=== PATIENT | male | born 1985 | race Caucasian/White ===

== ENCOUNTER 2018-04-10 22:28 | Emergency (ER) | payer MEDICAID ==
[~2018-04-10] VITALS: Ht 177.8 cm; Wt 84.0 kg
[2018-04-10 22:30] VITALS: BP 146/66
[2018-04-10] MEDS ORDERED: DIPH,PERTUSS(ACELL),TET VAC/PF 0.5 ML IM-VACC ONE (23:00)
== END 2018-04-11 00:26 | disposition home or self-care (01) ==
LOC: ED 23:51
DX: S01.81XA Laceration without foreign body of other part of head, initial encounter (principal); M25.532 Pain in left wrist; M79.632 Pain in left forearm; Z72.9 Problem related to lifestyle, unspecified; F10.129 Alcohol abuse with intoxication, unspecified; F17.200 Nicotine dependence, unspecified, uncomplicated; X58.XXXA Exposure to other specified factors, initial encounter; Y93.89 Activity, other specified; Y92.89 Other specified places as the place of occurrence of the external cause; Y99.8 Other external cause status
CPT/HCPCS: 71045; 99284

== ENCOUNTER 2019-11-15 10:20 | Emergency (ER) | payer OTHER, MEDICARE, MEDICAID ==
[~2019-11-15] VITALS: Ht 177.8 cm; Wt 77.3 kg
[2019-11-15] MEDS ORDERED: LIDOCAINE 1%, 10ML INFIL ONE (10:30)
[2019-11-15] MEDS ORDERED: DIPH,PERTUSS(ACELL),TET VAC/PF 0.5 ML IM-VACC ONE ×2 (10:30→10:43)
[2019-11-15] MEDS ORDERED: LIDOCAINE 1%-EPI 1:100K, 20ML ONE (10:43)
[2019-11-15 11:22] LABS: BASOPHILS # (AUTO) 0.02 x10^3/uL (0-0.1); BASOPHILS % (AUTO) 0 % (0-1); EOSINOPHILS # (AUTO) 0.03 x10^3/uL (0-0.4); EOSINOPHILS % (AUTO) 0 % (1-7); LYMPHOCYTES # (AUTO) 1.86 x10^3/uL (1-3.4); LYMPHOCYTES % (AUTO) 14 % (22-44); MD NO; MEAN CORPUSCULAR HEMOGLOBIN 31.4 pg (27.5-34.5); MEAN CORPUSCULAR HGB CONC 33.8 g/dL (33.2-36.2); MEAN PLATELET VOLUME 6.9 fL (7.4-10.4); MONOCYTES # (AUTO) 0.91 x10^3/uL (0.2-0.8); MONOCYTES % (AUTO) 7 % (2-9); NEUTROPHILS # (AUTO) 10.47 x10^3/uL (1.8-6.8); NEUTROPHILS % (AUTO) 79 % (42-75); PLATELET COUNT 352 x10^3/uL (130-400); RED BLOOD COUNT 4.92 x10^6/uL (4.38-5.82); RED CELL DISTRIBUTION WIDTH 13.6 % (9.4-14.8)
[2019-11-15 11:32] LABS: ANION GAP 8 mmol/L (5-15); CALCIUM 9.3 mg/dL (8.5-10.1); CHLORIDE 102 mmol/L (98-107); CREATININE 0.83 mg/dL (0.7-1.3)
[2019-11-15 11:33] LABS: ALBUMIN 3.7 g/dL (3.4-5.0)
[2019-11-15 12:17] VITALS: BP 113/73
[2019-11-15] MEDS ORDERED: CLINDAMYCIN 150 MG CAPSULE PO ONE (13:30)
== END 2019-11-15 14:02 ==
LOC: ED 10:58
DX: L02.611 Cutaneous abscess of right foot (principal); L03.115 Cellulitis of right lower limb
CPT/HCPCS: 10060; 36415; 73630; 80048; 82040; 85025; 90471; 90715; 99284; J3490